=== PATIENT | female | born 1940 | race Caucasian/White ===

== ENCOUNTER 2021-06-17 17:46 | Emergency (ER) | payer OTHER ==
[~2021-06-17] VITALS: Ht 167.6 cm; Wt 72.6 kg
[2021-06-17] MEDS ORDERED: ASPIRIN (17:53)
[2021-06-17] MEDS ORDERED: BP MEDICATION (17:53)
[2021-06-17] MEDS ORDERED: ELIQUIS (17:53)
[2021-06-17] MEDS ORDERED: HYDROCODONE/APAP 5-325MG TABLET PO ONE (18:00)
[2021-06-17] MEDS ORDERED: HYDROCODONE/APAP 5-325MG TABLET ONE (18:06)
[2021-06-17] MEDS ORDERED: IV NORMAL SALINE 1000 ML BAG IV ONE (19:00)
[2021-06-17 19:18] LABS: HEMATOCRIT 36.8 % (31.2-41.9); MEAN CORPUSCULAR HEMOGLOBIN 31.3 uug (24.7-32.8); MEAN CORPUSCULAR VOLUME 92.9 fL (75.5-95.3); PLATELET COUNT (AUTO) 220 K/uL (179-408)
[2021-06-17 19:30] LABS: CARBON DIOXIDE 29 mmol/L (21-32); CHLORIDE 103 mmol/L (98-107); CREATININE 0.7 mg/dL (0.6-1.3); GLUCOSE 125 mg/dL (74-106); UREA NITROGEN, BLOOD 20 mg/dL (7-18)
[2021-06-17 19:45] LABS: ALANINE AMINOTRANSFERASE 24 U/L (14-59); ALKALINE PHOSPHATASE 35 U/L (50-136); ASPARTATE AMINOTRANSFERASE 17 U/L (15-37); BILIRUBIN,DIRECT 0.1 mg/dL (0.0-0.2); BILIRUBIN,TOTAL 0.5 mg/dL (0.2-1.0); TOTAL PROTEIN, SERUM 5.8 g/dL (6.4-8.2)
[2021-06-17 21:44] LABS: *BILIRUBIN,URIN NEGATIVE (NEGATIVE); *BLOOD, URINE NEGATIVE (NEGATIVE); *CLARITY,URINE CLEAR (CLEAR); *COLOR,URINE YELLOW (YELLOW); *KETONES,URINE TRACE (NEGATIVE); *UROBILINOGEN,URINE 0.2 E.U./dl (NORMAL); LEUKOCYTE ESTERASE ,URINE NEGATIVE (NEGATIVE); NITRITE, URINE NEGATIVE (NEGATIVE); PH,URINE 7.5 (5.0-8.0); UGLUCOSE NEGATIVE (NEGATIVE)
[2021-06-17 22:03] VITALS: BP 133/53
[2021-06-17 22:23] LABS: BACTERIA,URINE NONE SEEN /HPF (NONE SEEN); RBC,URINE 0-3 /HPF (0-3); SQUAMOUS EPITHELIAL CELL,UR FEW /HPF (NONE SEEN); URINE AMORPHOUS PHOSPHATES MODERATE /HPF; WBC,URINE 0-3 /HPF (0-3)
== END 2021-06-17 22:02 | disposition home or self-care (01) ==
LOC: ER 17:49
DX: M25.461 Effusion, right knee (principal); R55 Syncope and collapse; I48.91 Unspecified atrial fibrillation; Z79.01 Long term (current) use of anticoagulants; M11.261 Other chondrocalcinosis, right knee
CPT/HCPCS: 36415; 83605; 84484; 85025; 85730; 93005; A4663; J7040